=== PATIENT | male | born 1960 | race Caucasian/White ===

== ENCOUNTER 2016-11-28 12:26 | Emergency (ER) | payer MEDICARE, OTHER | END 2016-11-28 13:43 | disposition home or self-care (01) | LOC: FER 12:26 | DX: S83.91XA Sprain of unspecified site of right knee, initial encounter (principal); I10 Essential (primary) hypertension; D68.9 Coagulation defect, unspecified; Z79.01 Long term (current) use of anticoagulants; Z79.82 Long term (current) use of aspirin; Z79.899 Other long term (current) drug therapy; W17.89XA Other fall from one level to another, initial encounter; Y92.830 Public park as the place of occurrence of the external cause | CPT/HCPCS: 70450; 73590; 73610 ==

== ENCOUNTER 2016-12-10 14:50 | Emergency (ER) | payer MEDICARE, OTHER ==
[2016-12-10 16:01] LABS: BASOPHIL 0.4 % (0-2); EOSINOPHIL 2.4 % (0-5); HCT 34.7 % (42.0-52.0); HGB 11.5 g/dl (13.2-18.0); LYMPHOCYTE 13.3 % (15-48); MCHC 33.1 g/dL (32.0-36.0); MCV 99.7 fL (78.0-100.0); MONOCYTE 7.2 % (0-12); NEUTROPHIL 76.7 % (41-80); PLT 232 K/uL (150-400); RBC 3.48 M/uL (4.70-6.00); RDW 14.4 % (11.5-14.0); WBC 7.2 K/uL (4.0-10.5)
[2016-12-10 16:16] LABS: ALBUMIN 3.6 g/dL (3.5-5.0); BILIRUBIN - TOTAL 0.7 mg/dL (0.1-1.0); CREATININE 0.9 mg/dL (0.7-1.2); GLOBULIN (CALCULATION) 2.3 g/dL (2.2-4.2); POTASSIUM 4.3 mmol/L (3.5-5.1); TOTAL PROTEIN 5.9 g/dL (6.4-8.3)
[2016-12-10 16:19] LABS: LACTIC ACID 1.2 mmol/L (0.5-2.2)
== END 2016-12-10 17:43 | disposition home or self-care (01) ==
LOC: FER 14:50
PROVIDERS: Internal Medicine
DX: M79.604 Pain in right leg (principal); E11.9 Type 2 diabetes mellitus without complications; I10 Essential (primary) hypertension; W19.XXXA Unspecified fall, initial encounter; Y92.009 Unspecified place in unspecified non-institutional (private) residence as the place of occurrence of the external cause
CPT/HCPCS: 36415; 80053; 83605; 83880; 85025; 93005; 93971; J1885

== ENCOUNTER 2021-05-03 15:23 | Emergency (ER) | payer MEDICARE, OTHER ==
[~2021-05-03] VITALS: Ht 177.8 cm; Wt 99.8 kg
[2021-05-03 17:13] LABS: BASOPHIL 0.7 % (0-2); EOSINOPHIL 3.2 % (0-5); HCT 39.3 % (42.0-52.0); HGB 12.8 g/dl (13.2-18.0); LYMPHOCYTE 19.4 % (15-48); MCH 34.8 pg (25.0-31.0); MCHC 32.6 g/dL (32.0-36.0); MCV 106.8 fL (78.0-100.0); MONOCYTE 7.8 % (0-12); MPV 11.1 fL (6.0-9.5); NEUTROPHIL 68.6 % (41-80); NRBC 0; PLT 174 K/uL (150-400); RBC 3.68 M/uL (4.70-6.00); RDW 13.3 % (11.5-14.0)
[2021-05-03 17:48] LABS: PRO-BNP 596 pg/mL (<125)
[2021-05-03 17:55] LABS: BILIRUBIN NEGATIVE (NEGATIVE); BLOOD 1+ Ery/uL (NEGATIVE); CLARITY CLEAR (CLEAR); COLOR YELLOW (YELLOW); GLUCOSE (U) NORMAL (NORMAL); LEUKOCYTES 2+ Leu/uL (NEGATIVE); NITRITE NEGATIVE (NEGATIVE); PROTEIN NEGATIVE (NEGATIVE); UROBILINOGEN 0.2 mg/dL (0.2-1.0)
[2021-05-03 18:07] LABS: BACTERIA TRACE
[2021-05-03 18:07] LABS: ALBUMIN 3.5 g/dL (3.4-5.0); ALKALINE PHOSHATASE 115 U/L (46-116); ALT 30 U/L (16-63); AST 18 U/L (15-37); BILIRUBIN - TOTAL 0.4 mg/dL (0.2-1.0); BUN 19 mg/dL (7-18); BUN/CREAT RATIO (CALC) 20.4 RATIO; CHLORIDE 99 mmol/L (98-107); CO2 (BICARBONATE) 34 mmol/L (21-32); CREATININE 0.93 mg/dL (0.67-1.17); GLOBULIN (CALCULATION) 3.7 g/dL; GLUCOSE 80 mg/dL (74-106); MAGNESIUM 1.8 mg/dL (1.8-2.4); POTASSIUM 3.9 mmol/L (3.5-5.1); TOTAL PROTEIN 7.2 g/dL (6.4-8.2)
[2021-05-03 18:08] LABS: C-REACTIVE PROTEIN < 0.20 mg/dL (<=0.90)
[2021-05-03] MEDS ORDERED: AUGMENTIN 875-1 EACH PO (19:32)
== END 2021-05-03 20:40 | disposition home or self-care (01) ==
LOC: FER 15:23
PROVIDERS: Emergency Medicine
DX: R53.1 Weakness (principal); N39.0 Urinary tract infection, site not specified; I50.9 Heart failure, unspecified; E11.9 Type 2 diabetes mellitus without complications; Z88.2 Allergy status to sulfonamides; Z20.822 Contact with and (suspected) exposure to COVID-19
CPT/HCPCS: 36415; 71045; 80053; 81001; 82728; 83735; 83880; 84145; 84484; 85025; 86140; 93005; J0696; U0002

== ENCOUNTER 2021-06-23 08:37 | Inpatient (IN) | payer MEDICARE, OTHER ==
[~2021-06-23] VITALS: Ht 182.9 cm; Wt 108.0 kg
[~2021-06-23 08:37] MED LIST: AUGMENTIN 875-1 EACH PO
[2021-06-23 09:10] LABS: BASOPHIL 0.3 % (0-2); EOSINOPHIL 0.2 % (0-5); HCT 37.8 % (42.0-52.0); HGB 12.6 g/dl (13.2-18.0); LYMPHOCYTE 4.4 % (15-48); MCH 34.7 pg (25.0-31.0); MCHC 33.3 g/dL (32.0-36.0); MCV 104.1 fL (78.0-100.0); MONOCYTE 8.3 % (0-12); MPV 10.4 fL (6.0-9.5); NEUTROPHIL 86.6 % (41-80); NRBC 0; PLT 151 K/uL (150-400); RBC 3.63 M/uL (4.70-6.00); RDW 13.2 % (11.5-14.0)
[2021-06-23 09:11] LABS: WBC 6.4 K/uL (4.0-10.5)
[2021-06-23 09:27] LABS: CKMB 0.6 ng/mL (0.0-3.6); PRO-BNP 1311 pg/mL (<125)
[2021-06-23 09:31] LABS: CORONAVIRUS 2019 SARS-COV-2 NEGATIVE (NEGATIVE); INFLUENZA A NAA NEGATIVE (NEGATIVE)
[2021-06-23 09:36] LABS: LACTIC ACID 2.1 mmol/L (0.4-1.9)
[2021-06-23 09:45] LABS: ALBUMIN 3.2 g/dL (3.4-5.0); BILIRUBIN - TOTAL 0.6 mg/dL (0.2-1.0); CREATININE 1.25 mg/dL (0.67-1.17); GLOBULIN (CALCULATION) 3.4 g/dL; POTASSIUM 3.6 mmol/L (3.5-5.1); TOTAL PROTEIN 6.6 g/dL (6.4-8.2)
[2021-06-23 09:51] LABS: BILIRUBIN NEGATIVE (NEGATIVE); BLOOD NEGATIVE Ery/uL (NEGATIVE); CLARITY CLEAR (CLEAR); COLOR YELLOW (YELLOW); GLUCOSE (U) NORMAL (NORMAL); LEUKOCYTES 2+ Leu/uL (NEGATIVE); NITRITE POSITIVE (NEGATIVE); PROTEIN NEGATIVE (NEGATIVE); UROBILINOGEN 0.2 mg/dL (0.2-1.0)
[2021-06-23 09:59] LABS: BACTERIA 1+
[2021-06-23 10:00] LABS: AMORPHOUS PHOSPHATE CRYSTALS TRACE
[2021-06-24 05:22] LABS: BASOPHIL 0.3 % (0-2); EOSINOPHIL 0.9 % (0-5); HCT 33.1 % (42.0-52.0); LYMPHOCYTE 9.9 % (15-48); MCHC 33.2 g/dL (32.0-36.0); MCV 105.4 fL (78.0-100.0); MONOCYTE 9.1 % (0-12); MPV 10.1 fL (6.0-9.5); NEUTROPHIL 79.3 % (41-80); NRBC 0; PLT 147 K/uL (150-400); RBC 3.14 M/uL (4.70-6.00); RDW 13.3 % (11.5-14.0)
[2021-06-24 05:28] LABS: WBC 10.9 K/uL (4.0-10.5)
[2021-06-24 05:58] LABS: ALBUMIN 2.6 g/dL (3.4-5.0); BILIRUBIN - TOTAL 0.5 mg/dL (0.2-1.0); BUN/CREAT RATIO (CALC) 18.3 RATIO; CREATININE 0.93 mg/dL (0.67-1.17); GLOBULIN (CALCULATION) 2.6 g/dL; POTASSIUM 3.2 mmol/L (3.5-5.1); TOTAL PROTEIN 5.2 g/dL (6.4-8.2)
[2021-06-24] MEDS ORDERED: LIPITOR40 MG PO (07:36)
[2021-06-24] MEDS ORDERED: LEXAPRO20 MG PO (07:37)
[2021-06-24] MEDS ORDERED: PLAVIX75 MG PO (07:37)
[2021-06-24] MEDS ORDERED: METFORMIN HCL500 MG PO (07:38)
[2021-06-24] MEDS ORDERED: POTASSIUM CHLO20 ME2 PO (07:39)
[2021-06-24] MEDS ORDERED: FLOMAX0.4 MG PO (07:39)
[2021-06-24] MEDS ORDERED: BUSPIRONE HCL15 MG PO (07:40)
[2021-06-24] MEDS ORDERED: CARAFATE1 GM PO (07:41)
[2021-06-24] MEDS ORDERED: LASIX80 MG PO (07:41)
[2021-06-24] MEDS ORDERED: PROTONIX 40MG T40 MG PO (07:45)
[2021-06-24] MEDS ORDERED: SINEQUAN50 MG PO (07:46)
[2021-06-24] MEDS ORDERED: PROAMATINE5 MG PO (07:46)
[2021-06-24] MEDS ORDERED: FINASTERIDE5 MG PO (07:46)
[2021-06-24] MEDS ORDERED: OLANZAPINE10 MG PO (07:47)
--- NOTE | 2021-06-24 10:26 | NUR ---
06/24/21 Per Dolly Reveles, [facility] staff. Mr. Wolf lives at [facility]. He has a dx of moderate intellectual disability. Mr. Wolf walks with SBA. According to Ms. Reveles, Mr. Wolf is able to provide accurate information re: himself. - [facility] will accept back with HH. They will not accept anyone on 02 or requiring skilled care. - The correct # for the guardian, Chely Tayloroten, was provided [phone].
[2021-06-25 06:26] LABS: BASOPHIL 0.4 % (0-2); EOSINOPHIL 3.4 % (0-5); HCT 30.2 % (42.0-52.0); HGB 9.8 g/dl (13.2-18.0); LYMPHOCYTE 11.8 % (15-48); MCH 34.3 pg (25.0-31.0); MCHC 32.5 g/dL (32.0-36.0); MCV 105.6 fL (78.0-100.0); MONOCYTE 7.3 % (0-12); MPV 10.3 fL (6.0-9.5); NEUTROPHIL 76.3 % (41-80); NRBC 0; PLT 131 K/uL (150-400); RBC 2.86 M/uL (4.70-6.00); RDW 13.3 % (11.5-14.0); WBC 7.1 K/uL (4.0-10.5)
[2021-06-25 07:12] LABS: CREATININE 0.77 mg/dL (0.67-1.17); POTASSIUM 3.5 mmol/L (3.5-5.1); VANCOMYCIN, TROUGH 12.6 ug/mL (10-20)
[2021-06-26 05:19] LABS: BASOPHIL 0.7 % (0-2); EOSINOPHIL 4.2 % (0-5); HCT 31.3 % (42.0-52.0); HGB 10.4 g/dl (13.2-18.0); LYMPHOCYTE 14.4 % (15-48); MCH 34.8 pg (25.0-31.0); MCHC 33.2 g/dL (32.0-36.0); MCV 104.7 fL (78.0-100.0); MONOCYTE 5.4 % (0-12); MPV 10.2 fL (6.0-9.5); NEUTROPHIL 73.7 % (41-80); NRBC 0; PLT 156 K/uL (150-400); RBC 2.99 M/uL (4.70-6.00); RDW 13.2 % (11.5-14.0); WBC 5.8 K/uL (4.0-10.5)
[2021-06-26 05:53] LABS: BUN/CREAT RATIO (CALC) 11.3 RATIO; CREATININE 0.71 mg/dL (0.67-1.17); MAGNESIUM 1.8 mg/dL (1.8-2.4); POTASSIUM 3.9 mmol/L (3.5-5.1)
[2021-06-26 22:03] LABS: RETICULOCYTE COUNT 1.6 % (1.0-2.0)
[2021-06-26 22:28] LABS: IRON % SATURATION 47.3 %SAT (20-50)
[2021-06-26 22:57] LABS: FOLIC ACID (SERUM) 4.1 ng/mL (8.6-58.9)
--- NOTE | 2021-06-27 16:20 | NUR ---
06/27 Chely Garibay / cousin / guardian, , was informed of anticipated discharge date of 06/28.
[2021-06-28] MEDS ORDERED: AUGMENTIN 875-1 EACH PO ×2 (16:32→16:34)
[2021-06-28] MEDS ORDERED: DOXYCYCLINE MO100 M1 PO ×2 (16:32→16:34)
== END 2021-06-28 17:52 | disposition home health service (06) | DRG 871 ==
LOC: EDBD 08:37 → FER 08:37 → FICU 11:32 → FOFB 11:32 → FICU 11:32 → FMS 06-27 13:20
PROVIDERS: Emergency Medicine; Internal Medicine; ADMIT Internal Medicine
PROC: 3E033XZ Introduction of Vasopressor into Peripheral Vein, Percutaneous Approach (ICD-10-PCS; principal; 2021-06-23)
PROC: 02HV33Z Insertion of Infusion Device into Superior Vena Cava, Percutaneous Approach (ICD-10-PCS; 2021-06-23)
PROC: B548ZZA Ultrasonography of Superior Vena Cava, Guidance (ICD-10-PCS; 2021-06-23)
DX: A41.9 Sepsis, unspecified organism (principal); J18.9 Pneumonia, unspecified organism; R65.21 Severe sepsis with septic shock; G93.41 Metabolic encephalopathy; N30.00 Acute cystitis without hematuria; I48.20 Chronic atrial fibrillation, unspecified; N17.9 Acute kidney failure, unspecified; Z20.822 Contact with and (suspected) exposure to COVID-19; E11.9 Type 2 diabetes mellitus without complications; D63.8 Anemia in other chronic diseases classified elsewhere; L89.151 Pressure ulcer of sacral region, stage 1; I35.0 Nonrheumatic aortic (valve) stenosis; E87.6 Hypokalemia; R07.9 Chest pain, unspecified; F41.9 Anxiety disorder, unspecified; F32.A Depression, unspecified; I50.9 Heart failure, unspecified; I11.0 Hypertensive heart disease with heart failure; Z95.4 Presence of other heart-valve replacement; Z88.2 Allergy status to sulfonamides
CPT/HCPCS: 36415; 36600; 71045; 71250; 80048; 80053; 80202; 81001; 82553; 82607; 82746; 82803; 83540; 83550; 83605; 83735; 83880; 84145; 84484; 85025; 87040; 87076; 87088; 87186; 92526; 93005; J0456; J1650; J2543; J3370; J7030; J7050; J7060; U0002

== ENCOUNTER 2021-08-01 11:38 | Emergency (ER) | payer MEDICARE, OTHER ==
[~2021-08-01 11:38] MED LIST changes: +BUSPIRONE HCL15 MG PO; +CARAFATE1 GM PO; +DOXYCYCLINE MO100 M1 PO; +FINASTERIDE5 MG PO; +FLOMAX0.4 MG PO; +LASIX80 MG PO; +LEXAPRO20 MG PO; +LIPITOR40 MG PO; +METFORMIN HCL500 MG PO; +OLANZAPINE10 MG PO; +PLAVIX75 MG PO; +POTASSIUM CHLO20 ME2 PO; +PROAMATINE5 MG PO; +PROTONIX 40MG T40 MG PO; +SINEQUAN50 MG PO
[2021-08-01 12:49] LABS: ALBUMIN 3.1 g/dL (3.4-5.0); BILIRUBIN - TOTAL 0.8 mg/dL (0.2-1.0); CREATININE 0.82 mg/dL (0.67-1.17); GLOBULIN (CALCULATION) 3.6 g/dL; POTASSIUM 3.7 mmol/L (3.5-5.1); TOTAL PROTEIN 6.7 g/dL (6.4-8.2)
[2021-08-01 13:04] LABS: BASOPHIL 0.3 % (0-2); EOSINOPHIL 2.2 % (0-5); HCT 36.1 % (42.0-52.0); HGB 12.3 g/dl (13.2-18.0); LYMPHOCYTE 7.4 % (15-48); MCH 34.6 pg (25.0-31.0); MCHC 34.1 g/dL (32.0-36.0); MCV 101.7 fL (78.0-100.0); MONOCYTE 3.5 % (0-12); MPV 10.7 fL (6.0-9.5); NEUTROPHIL 86.3 % (41-80); NRBC 0; PLT 153 K/uL (150-400); RBC 3.55 M/uL (4.70-6.00); RDW 13.2 % (11.5-14.0)
[2021-08-01 15:46] LABS: BUN/CREAT RATIO (CALC) 22.4 RATIO; CREATININE 0.76 mg/dL (0.67-1.17); POTASSIUM 3.6 mmol/L (3.5-5.1)
[2021-08-01 15:57] LABS: BILIRUBIN NEGATIVE (NEGATIVE); BLOOD TRACE-INTACT Ery/uL (NEGATIVE); CLARITY HAZY (CLEAR); COLOR YELLOW (YELLOW); GLUCOSE (U) NORMAL (NORMAL); LEUKOCYTES 3+ Leu/uL (NEGATIVE); NITRITE NEGATIVE (NEGATIVE); PROTEIN NEGATIVE (NEGATIVE); SPECIFIC GRAVITY <=1.005 (1.001-1.030); UROBILINOGEN 0.2 mg/dL (0.2-1.0)
[2021-08-01 16:15] LABS: BACTERIA 2+; URINARY WBC TNTC
[2021-08-01 16:16] LABS: TRANSITIONAL EPITHELIAL CELLS RARE
== END 2021-08-01 16:31 | disposition home or self-care (01) ==
LOC: FER 11:38
PROVIDERS: Emergency Medicine
DX: E87.1 Hypo-osmolality and hyponatremia (principal); Z53.29 Procedure and treatment not carried out because of patient's decision for other reasons; Z88.1 Allergy status to other antibiotic agents
CPT/HCPCS: 36415; 80048; 80053; 81001; 85025; 87076; 87088; 87186; 99283; J7030

== ENCOUNTER 2021-08-02 20:41 | Inpatient (IN) | payer MEDICARE, OTHER ==
[~2021-08-02] VITALS: Ht 182.9 cm; Wt 99.1 kg
[2021-08-02 21:59] LABS: BASOPHIL 0.4 % (0-2); EOSINOPHIL 2.4 % (0-5); HCT 31.4 % (42.0-52.0); HGB 10.9 g/dl (13.2-18.0); LYMPHOCYTE 10.1 % (15-48); MCHC 34.7 g/dL (32.0-36.0); MONOCYTE 2.8 % (0-12); MPV 11.1 fL (6.0-9.5); NEUTROPHIL 83.7 % (41-80); NRBC 0; RBC 3.11 M/uL (4.70-6.00); RDW 13.5 % (11.5-14.0); WBC 11.1 K/uL (4.0-10.5)
[2021-08-02 22:10] LABS: ALBUMIN 2.7 g/dL (3.4-5.0); BILIRUBIN - TOTAL 0.6 mg/dL (0.2-1.0); CREATININE 0.79 mg/dL (0.67-1.17); GLOBULIN (CALCULATION) 3.6 g/dL; POTASSIUM 4.1 mmol/L (3.5-5.1); TOTAL PROTEIN 6.3 g/dL (6.4-8.2)
[2021-08-02 22:15] LABS: LACTIC ACID 1.2 mmol/L (0.4-1.9)
[2021-08-02 22:16] LABS: PLT 92 K/uL (150-400)
[2021-08-03 00:09] LABS: CORONAVIRUS 2019 SARS-COV-2 NEGATIVE (NEGATIVE); INFLUENZA A NAA NEGATIVE (NEGATIVE)
[2021-08-03 03:09] LABS: BILIRUBIN NEGATIVE (NEGATIVE); BLOOD TRACE-INTACT Ery/uL (NEGATIVE); CLARITY CLEAR (CLEAR); COLOR YELLOW (YELLOW); GLUCOSE (U) NORMAL (NORMAL); LEUKOCYTES 1+ Leu/uL (NEGATIVE); NITRITE NEGATIVE (NEGATIVE); PROTEIN NEGATIVE (NEGATIVE); SPECIFIC GRAVITY <=1.005 (1.001-1.030); UROBILINOGEN 0.2 mg/dL (0.2-1.0); pH 5.5 (5.0-9.0)
[2021-08-03 03:15] LABS: AMORPHOUS URATES CRYSTALS MODERATE; BACTERIA 1+; URINARY RBC RARE
[2021-08-04 06:31] LABS: BASOPHIL 0.9 % (0-2); EOSINOPHIL 5.5 % (0-5); HCT 34.9 % (42.0-52.0); HGB 11.6 g/dl (13.2-18.0); LYMPHOCYTE 13.4 % (15-48); MCH 34.5 pg (25.0-31.0); MCHC 33.2 g/dL (32.0-36.0); MCV 103.9 fL (78.0-100.0); MONOCYTE 4.6 % (0-12); MPV 10.4 fL (6.0-9.5); NEUTROPHIL 74.7 % (41-80); NRBC 0; PLT 142 K/uL (150-400); RBC 3.36 M/uL (4.70-6.00); RDW 13.7 % (11.5-14.0); WBC 5.6 K/uL (4.0-10.5)
[2021-08-04 06:57] LABS: CREATININE 0.77 mg/dL (0.67-1.17); POTASSIUM 3.6 mmol/L (3.5-5.1)
[2021-08-04] MEDS ORDERED: LIPITOR40 MG PO (08:57)
[2021-08-04] MEDS ORDERED: PLAVIX75 MG PO (08:57)
[2021-08-04] MEDS ORDERED: IRON325 M1 PO (08:57)
[2021-08-04] MEDS ORDERED: BUSPIRONE HCL15 MG PO (08:57)
[2021-08-04] MEDS ORDERED: LEXAPRO20 M1 PO (08:58)
[2021-08-04] MEDS ORDERED: METFORMIN HCL500 MG PO (08:58)
[2021-08-04] MEDS ORDERED: PROTONIX 40MG T40 MG PO (09:00)
[2021-08-04] MEDS ORDERED: ZYPREXA10 MG PO (09:00)
[2021-08-04] MEDS ORDERED: POTASSIUM CHLO20 ME2 PO (09:00)
[2021-08-04] MEDS ORDERED: CARAFATE1 GM PO (09:01)
[2021-08-04] MEDS ORDERED: REGULOID0.4 GM PO (09:01)
[2021-08-04] MEDS ORDERED: MIDODRINE HCL10 MG PO (09:02)
[2021-08-04] MEDS ORDERED: FLOMAX0.4 MG PO (09:02)
[2021-08-04] MEDS ORDERED: FINASTERIDE5 MG PO (09:03)
[2021-08-04 09:22] LABS: FOLIC ACID (SERUM) 5.4 ng/mL (8.6-58.9)
[2021-08-05 00:08] LABS: MAGNESIUM 1.6 mg/dL (1.8-2.4); PHOSPHORUS 4.4 mg/dL (2.6-4.7)
[2021-08-05 00:24] LABS: CKMB <0.5 ng/mL (0.0-3.6); PRO-BNP 859 pg/mL (<125)
[2021-08-05 06:41] LABS: HCT 30.2 % (42.0-52.0); HGB 10.2 g/dl (13.2-18.0); MCH 34.9 pg (25.0-31.0); MCHC 33.8 g/dL (32.0-36.0); MCV 103.4 fL (78.0-100.0); MPV 10.4 fL (6.0-9.5); RBC 2.92 M/uL (4.70-6.00); WBC 8.2 K/uL (4.0-10.5)
[2021-08-05 06:51] LABS: CREATININE 0.73 mg/dL (0.67-1.17); MAGNESIUM 1.8 mg/dL (1.8-2.4); POTASSIUM 3.5 mmol/L (3.5-5.1)
[2021-08-05 14:08] LABS: BUN/CREAT RATIO (CALC) 12.3 RATIO; CREATININE 0.81 mg/dL (0.67-1.17); POTASSIUM 4.2 mmol/L (3.5-5.1)
--- NOTE | 2021-08-05 16:45 | NUR ---
INFORMED DONNA DIXON OF PT VOIDING PER BRIEF X2. WITH BLOOD IN BRIEF. WILL CONTINUE TO MOITOR. NO SIGNS OF CLOTS.
--- NOTE | 2021-08-05 17:59 | NUR ---
08/05/21 Mr. Wolf has a dx of intellectual disability. He lives at [facility]. Chely Garibay, , is listed as his guardina. - Raya has delivered a rw to the patient room per Alisa Elise's, order.
[2021-08-06 06:15] LABS: HCT 30.9 % (42.0-52.0); HGB 10.4 g/dl (13.2-18.0); MCH 34.9 pg (25.0-31.0); MCHC 33.7 g/dL (32.0-36.0); MCV 103.7 fL (78.0-100.0); MPV 10.2 fL (6.0-9.5); RBC 2.98 M/uL (4.70-6.00); RDW 14.2 % (11.5-14.0); WBC 5.9 K/uL (4.0-10.5)
[2021-08-06 06:55] LABS: BUN/CREAT RATIO (CALC) 14.3 RATIO; CREATININE 0.7 mg/dL (0.67-1.17); POTASSIUM 3.9 mmol/L (3.5-5.1)
[2021-08-06] MEDS ORDERED: LASIX80 MG PO (17:41)
[2021-08-07 09:49] LABS: BILIRUBIN NEGATIVE (NEGATIVE); BLOOD NEGATIVE Ery/uL (NEGATIVE); CLARITY CLEAR (CLEAR); COLOR YELLOW (YELLOW); GLUCOSE (U) NORMAL (NORMAL); LEUKOCYTES TRACE Leu/uL (NEGATIVE); NITRITE NEGATIVE (NEGATIVE); PROTEIN NEGATIVE (NEGATIVE); SPECIFIC GRAVITY 1.015 (1.001-1.030); UROBILINOGEN 0.2 mg/dL (0.2-1.0); pH 7.5 (5.0-9.0)
[2021-08-07 09:59] LABS: URINARY RBC RARE; URINARY WBC RARE
[2021-08-07] MEDS ORDERED: FUROSEMIDE 20MG20 MG PO (11:21)
[2021-08-07] MEDS ORDERED: CEFDINIR300 MG PO (11:25)
[2021-08-07] MEDS ORDERED: DOXYCYCLINE MO100 MG PO (11:25)
[2021-08-07] MEDS ORDERED: FLOMAX0.4 MG PO (11:51)
[2021-08-07] MEDS ORDERED: ALLOPURINOL300 MG PO (11:51)
== END 2021-08-07 13:37 | disposition home or self-care (01) | DRG 178 ==
LOC: FER 20:41 → FOFB 08-03 13:01 → FMS 08-03 13:01
PROVIDERS: Allergy & Immunology Allergy; Emergency Medicine Emergency Medical Services; Nurse Practitioner; Nurse Practitioner Acute Care; ADMIT Internal Medicine
PROC: 0T9B70Z Drainage of Bladder with Drainage Device, Via Natural or Artificial Opening (ICD-10-PCS; principal; 2021-08-03)
DX: J15.6 Pneumonia due to other Gram-negative bacteria (principal); I48.20 Chronic atrial fibrillation, unspecified; N13.6 Pyonephrosis; E87.1 Hypo-osmolality and hyponatremia; I31.3 Pericardial effusion (noninflammatory); T82.857A Stenosis of other cardiac prosthetic devices, implants and grafts, initial encounter; F72 Severe intellectual disabilities; I50.32 Chronic diastolic (congestive) heart failure; Z20.822 Contact with and (suspected) exposure to COVID-19; J12.9 Viral pneumonia, unspecified; I95.9 Hypotension, unspecified; I11.0 Hypertensive heart disease with heart failure; E83.42 Hypomagnesemia; R07.9 Chest pain, unspecified; E11.9 Type 2 diabetes mellitus without complications; F41.9 Anxiety disorder, unspecified; F32.A Depression, unspecified; D69.6 Thrombocytopenia, unspecified; D53.9 Nutritional anemia, unspecified; D52.9 Folate deficiency anemia, unspecified; S90.415A Abrasion, left lesser toe(s), initial encounter; S90.811A Abrasion, right foot, initial encounter; Z95.2 Presence of prosthetic heart valve; Z88.2 Allergy status to sulfonamides; Z79.02 Long term (current) use of antithrombotics/antiplatelets; Z79.899 Other long term (current) drug therapy; Z86.14 Personal history of Methicillin resistant Staphylococcus aureus infection
CPT/HCPCS: 36415; 36600; 71045; 71250; 80048; 80053; 81001; 82553; 82607; 82746; 82803; 83605; 83735; 83880; 84100; 84145; 84484; 85025; 87040; 87076; 87088; 87186; 93005; 94640; 96365; 96367; 97162; 97530-GP; 99283; J0696; J1940; J1956; J2270; J2543; J3475; J7030; J7050; U0002

== ENCOUNTER 2021-08-16 15:02 | Emergency (ER) | payer MEDICARE, OTHER ==
[~2021-08-16 15:02] MED LIST changes: +ALLOPURINOL300 MG PO; +CEFDINIR300 MG PO; +DOXYCYCLINE MO100 MG PO; +FUROSEMIDE 20MG20 MG PO; +IRON325 M1 PO; +LEXAPRO20 M1 PO; +MIDODRINE HCL10 MG PO; +REGULOID0.4 GM PO; +ZYPREXA10 MG PO
[2021-08-16 15:30] LABS: BASOPHIL 1.2 % (0-2); EOSINOPHIL 6.2 % (0-5); HCT 36.1 % (42.0-52.0); HGB 11.9 g/dl (13.2-18.0); LYMPHOCYTE 16.4 % (15-48); MCH 34.6 pg (25.0-31.0); MCV 104.9 fL (78.0-100.0); MONOCYTE 7.4 % (0-12); MPV 9.6 fL (6.0-9.5); NEUTROPHIL 68.3 % (41-80); NRBC 0; PLT 237 K/uL (150-400); RBC 3.44 M/uL (4.70-6.00); RDW 13.9 % (11.5-14.0); WBC 5.7 K/uL (4.0-10.5)
[2021-08-16 15:47] LABS: INR 1.03 (0.9-1.2); PROTHROMBIN TIME 12.9 SECONDS (11.8-13.4)
[2021-08-16 15:48] LABS: D-DIMER 1.36 ug/mLFEU (0.00-0.41)
[2021-08-16 16:03] LABS: ALBUMIN 2.7 g/dL (3.4-5.0); BILIRUBIN - TOTAL 0.3 mg/dL (0.2-1.0); BUN/CREAT RATIO (CALC) 8.7 RATIO; CREATININE 1.61 mg/dL (0.67-1.17); POTASSIUM 5.1 mmol/L (3.5-5.1); TOTAL PROTEIN 6.7 g/dL (6.4-8.2)
[2021-08-16 16:41] LABS: CORONAVIRUS 2019 SARS-COV-2 NEGATIVE (NEGATIVE); INFLUENZA A NAA NEGATIVE (NEGATIVE)
[2021-08-16 18:34] LABS: BILIRUBIN NEGATIVE (NEGATIVE); BLOOD 1+ Ery/uL (NEGATIVE); CLARITY CLEAR (CLEAR); COLOR YELLOW (YELLOW); GLUCOSE (U) NORMAL (NORMAL); LEUKOCYTES 1+ Leu/uL (NEGATIVE); NITRITE NEGATIVE (NEGATIVE); PROTEIN NEGATIVE (NEGATIVE); SPECIFIC GRAVITY 1.015 (1.001-1.030); UROBILINOGEN 0.2 mg/dL (0.2-1.0); pH 6.5 (5.0-9.0)
[2021-08-16 18:39] LABS: URINARY WBC 20-50
[2021-08-16 18:40] LABS: BACTERIA TRACE
[2021-08-16] MEDS ORDERED: CEFDINIR300 MG PO (19:24)
== END 2021-08-16 22:44 | disposition home or self-care (01) ==
LOC: FER 15:02
PROVIDERS: Nurse Practitioner Family
DX: N39.0 Urinary tract infection, site not specified (principal); R10.13 Epigastric pain; I10 Essential (primary) hypertension; I48.91 Unspecified atrial fibrillation; E11.9 Type 2 diabetes mellitus without complications; Z88.2 Allergy status to sulfonamides; Z20.822 Contact with and (suspected) exposure to COVID-19
CPT/HCPCS: 36415; 71045; 80053; 81001; 84145; 84484; 85025; 85379; 85610; 85730; 87040; 93005; J0696; U0002

== ENCOUNTER 2022-03-10 14:18 | Emergency (ER) | payer MEDICARE, OTHER ==
[2022-03-10 16:12] LABS: BASOPHIL 0.4 % (0-2); EOSINOPHIL 3.6 % (0-5); HCT 35.6 % (42.0-52.0); HGB 11.7 g/dl (13.2-18.0); MCH 32.8 pg (25.0-31.0); MCHC 32.9 g/dL (32.0-36.0); MCV 99.7 fL (78.0-100.0); MONOCYTE 8.2 % (0-12); MPV 10.8 fL (6.0-9.5); NEUTROPHIL 66.4 % (41-80); NRBC 0; PLT 156 K/uL (150-400); RBC 3.57 M/uL (4.70-6.00); RDW 13.4 % (11.5-14.0); WBC 5.2 K/uL (4.0-10.5)
[2022-03-10 16:13] LABS: ALBUMIN 3.3 g/dL (3.4-5.0); BILIRUBIN - TOTAL 0.3 mg/dL (0.2-1.0); BUN/CREAT RATIO (CALC) 19.8 RATIO; CREATININE 0.81 mg/dL (0.67-1.17); GLOBULIN (CALCULATION) 3.2 g/dL; POTASSIUM 5.1 mmol/L (3.5-5.1); TOTAL PROTEIN 6.5 g/dL (6.4-8.2)
[2022-03-10 16:18] LABS: LACTIC ACID 0.7 mmol/L (0.4-1.9)
[2022-03-10 18:35] LABS: BILIRUBIN NEGATIVE (NEGATIVE); BLOOD TRACE-INTACT Ery/uL (NEGATIVE); CLARITY HAZY (CLEAR); COLOR YELLOW (YELLOW); GLUCOSE (U) NORMAL (NORMAL); LEUKOCYTES 2+ Leu/uL (NEGATIVE); NITRITE POSITIVE (NEGATIVE); PROTEIN NEGATIVE (NEGATIVE); UROBILINOGEN 0.2 mg/dL (0.2-1.0); pH 6.5 (5.0-9.0)
[2022-03-10 18:45] LABS: URINARY RBC RARE
[2022-03-10] MEDS ORDERED: AMOX TR-K CLV1 EAC4 PO (19:49)
== END 2022-03-10 20:25 | disposition home or self-care (01) ==
LOC: FER 14:18
PROVIDERS: Nurse Practitioner Family
DX: N39.0 Urinary tract infection, site not specified (principal); E11.9 Type 2 diabetes mellitus without complications; I10 Essential (primary) hypertension; Z88.1 Allergy status to other antibiotic agents
CPT/HCPCS: 36415; 80053; 81001; 83605; 84145; 85025; 87040; 87076; 87088; 87186; J0696; J7030